=== PATIENT | female | born 1970 | race Caucasian/White ===

== ENCOUNTER → 2017-05-16 | Outpatient (CLI) | payer OTHER ==
[2017-05-16 14:14] LABS: BASO # 0.1 10*3/uL (0.0-0.1); BASO % 1.3 % (0.0-1.0); EOS # 0.1 10*3/uL (0.0-0.4); EOS % 1.5 % (1.0-4.0); HEMATOCRIT 45.8 % (37.0-47.0); HEMOGLOBIN 14.8 g/dl (12.0-16.0); LYMPH # 1.8 10*3/uL (1.3-4.4); MEAN CELL VOLUME 90.9 fl (81.0-99.0); MEAN CORPUSCULAR HGB 29.4 pg (27.0-31.0); MEAN CORPUSCULAR HGB CONC 32.3 g/dl (33.0-37.0); MEAN PLATELET VOLUME 10.3 fl (9.6-12.3); MONO # 0.4 10*3/uL (0.1-1.0); MONO % 7.3 % (3.0-9.0); NEUT # 3.1 10*3/uL (2.3-7.9); NEUT % 56.5 % (47.0-73.0); PLATELET COUNT AUTOMATED 235 10*3/uL (130-400); RED BLOOD COUNT 5.04 10*6/uL (4.10-5.10); RED CELL DISTRI WIDTH 12.7 % (0-14.5); WHITE BLOOD COUNT 5.5 10*3/uL (4.8-10.8)
[2017-05-16 14:35] LABS: ALBUMIN 3.6 gm/dl (3.1-4.5); ALKALINE PHOSPHATASE 66 U/L (45-117); BUN 9 mg/dl (7-24); CHLORIDE 104 mmol/L (98-107); CREATININE 0.87 mg/dL (0.55-1.02); POTASSIUM 4.3 mmol/L (3.5-5.1); SGOT/AST 14 IU/L (3-35); SGPT/ALT 15 U/L (12-78); SODIUM 135 mmol/L (136-145)
== END | disposition home or self-care (01) ==
LOC: US 13:00 → LAB 13:02
DX: N19 Unspecified kidney failure (principal); M19.90 Unspecified osteoarthritis, unspecified site; N39.0 Urinary tract infection, site not specified; Z96.0 Presence of urogenital implants

== ENCOUNTER → 2017-08-19 | Outpatient (CLI) | payer OTHER | END | disposition home or self-care (01) | LOC: US 10:56 | DX: R10.30 Lower abdominal pain, unspecified (principal); R33.9 Retention of urine, unspecified ==

== ENCOUNTER → 2018-12-15 | Outpatient (CLI) | payer OTHER ==
[2018-12-15 07:40] LABS: CREATININE 1.03 mg/dL (0.55-1.02)
[2018-12-15 07:51] LABS: BILIRUBIN NEGATIVE (NEGATIVE); BLOOD NEGATIVE (NEGATIVE); CLARITY CLOUDY (CLEAR); COLOR YELLOW (YELLOW); GLUCOSE NEGATIVE (NEGATIVE); KETONE NEGATIVE (NEGATIVE); LEUKO ESTERASE NEGATIVE (NEGATIVE); NITRITE NEGATIVE (NEGATIVE); PH 5.5 (5.0-9.0); SPECIFIC GRAVITY 1.025 (1.005-1.030)
[2018-12-15 10:34] LABS: BACTERIA 2+; CALCIUM OXALATE CRYSTALS 1+; EPITHELIAL CELLS 15-20; MUCOUS 2+; WBC TNTC wbc/hpf (0-5)
== END | disposition home or self-care (01) ==
LOC: LAB 07:06 → CT 09:00
PROVIDERS: Radiology Diagnostic Radiology; Urology
DX: K57.30 Diverticulosis of large intestine without perforation or abscess without bleeding (principal); K44.9 Diaphragmatic hernia without obstruction or gangrene; N39.0 Urinary tract infection, site not specified; R39.15 Urgency of urination; N28.1 Cyst of kidney, acquired; Z90.49 Acquired absence of other specified parts of digestive tract

== ENCOUNTER → 2019-01-22 | Outpatient (CLI) | payer OTHER | END | disposition home or self-care (01) | LOC: US 12:30 | DX: N28.89 Other specified disorders of kidney and ureter (principal); R10.2 Pelvic and perineal pain; R30.0 Dysuria; Z90.710 Acquired absence of both cervix and uterus ==

== ENCOUNTER → 2019-04-11 | Outpatient (CLI) | payer OTHER ==
[2019-04-11 11:02] LABS: BILIRUBIN NEGATIVE (NEGATIVE); BLOOD NEGATIVE (NEGATIVE); CLARITY CLOUDY (CLEAR); COLOR YELLOW (YELLOW); GLUCOSE NEGATIVE (NEGATIVE); KETONE NEGATIVE (NEGATIVE); LEUKO ESTERASE 2+ (NEGATIVE); NITRITE POSITIVE (NEGATIVE); PH 7.5 (5.0-9.0); UROBILINOGEN 0.2 E.U./dl (0.2-1.0)
[2019-04-11 11:16] LABS: BACTERIA 2+; EPITHELIAL CELLS 21-30; WBC 51-100 wbc/hpf (0-5)
== END | disposition home or self-care (01) ==
LOC: LAB 10:40
PROVIDERS: Nurse Practitioner Family
DX: N39.0 Urinary tract infection, site not specified (principal)

== ENCOUNTER 2020-02-09 07:30 | Inpatient (IN) | payer OTHER ==
[~2020-02-09] VITALS: Ht 160 cm; Wt 61.8 kg
[2020-02-09 07:47] VITALS: BP 115/63; BP 116/89
[2020-02-09 08:13] LABS: BASO % 1.1 % (0.0-1.0); EOS # 0.1 10*3/uL (0.0-0.4); EOS % 3.7 % (1.0-4.0); HEMATOCRIT 42.5 % (37.0-47.0); LYMPH # 1.7 10*3/uL (1.3-4.4); LYMPH % 45.8 % (27.0-41.0); MEAN CELL VOLUME 88.7 fl (81.0-99.0); MEAN CORPUSCULAR HGB 29.6 pg (27.0-31.0); MEAN CORPUSCULAR HGB CONC 33.4 g/dl (33.0-37.0); MEAN PLATELET VOLUME 9.9 fl (9.6-12.3); MONO # 0.3 10*3/uL (0.1-1.0); MONO % 8.7 % (3.0-9.0); NEUT # 1.5 10*3/uL (2.3-7.9); NEUT % 40.4 % (47.0-73.0); PLATELET COUNT AUTOMATED 227 10*3/uL (130-400); RED BLOOD COUNT 4.79 10*6/uL (4.10-5.10); RED CELL DISTRI WIDTH 12.1 % (0-14.5); WHITE BLOOD COUNT 3.8 10*3/uL (4.8-10.8)
[2020-02-09 08:32] LABS: ACT PARTIAL THROMBO TIME 26.5 SECONDS (20.0-32.1); ALBUMIN 3.4 gm/dl (3.1-4.5); ALKALINE PHOSPHATASE 100 U/L (45-117); BUN 12 mg/dl (7-24); CHLORIDE 108 mmol/L (98-107); SGOT/AST 22 IU/L (3-35); SGPT/ALT 32 U/L (12-78); SODIUM 142 mmol/L (136-145); TOTAL PROTEIN 6.6 gm/dL (6.4-8.2)
[2020-02-09 08:35] LABS: TROPONIN I < 0.015 ng/ml (<0.045)
[2020-02-09] MEDS ORDERED: AMITRIPTYLINE25 MG PO (09:07)
[2020-02-09 09:30] VITALS: BP 147/84
--- NOTE | 2020-02-09 09:30 | NUR ---
A 49, admitted to 5E, under the services of ROGER Falk DO with a diagnosis of CHEST PAIN. Chief complaint is JABBING CHEST PAIN WITH ASSOCIATED SOB. Patient arrived via ambulatory from ER. Monitor applied. Initial assessment completed. Vital signs taken and recorded. ROGER FALK DO notified of admission to the unit. Orders received. See assessment for past medical history, medications and allergies. Patient and/or family oriented to unit. [facility] visitation policy reviewed. Clothing/patient valuable form completed. DIANA GOMEZ
--- NOTE | 2020-02-09 09:38 | NUR ---
COMPLAINTS OF CHEST PAIN. REQUESTING MORE MORPHINE. CALLED TO INFORM. SAID HE WOULD PUT ORDERS IN.
--- NOTE | 2020-02-09 09:57 | NUR ---
NITRO GIVEN [facility]PR CHEST PAIN RATED 10/10 WITH ASSOCIATED SOB. 2L NC IN PLACE. NRSE IN ROOM FOR ADMISSION PROCESS.
--- NOTE | 2020-02-09 10:04 | NUR ---
PER PT, NITRO HAS HELPED SOME. HEADACHE IS STARTING TO COME ON- STATES THIS IS MILD AND SHE CAN HANDLE IT WITHOUT MEDICATION. CHEST PAIN NOW RATED 6/10. WITH SOB IMPROVING. 2L NC STILL IN PLACE. CALL LIGHT IN REACH.
--- NOTE | 2020-02-09 10:08 | NUR ---
MED REC UPDATED. STATES SHE ONLY TAKES ELAVIL FOR GI DISTRESS FOR LACTOSE INTOLERANCE.
--- NOTE | 2020-02-09 11:27 | NUR ---
CONSULT CALLED TO .
--- NOTE | 2020-02-09 11:50 | NUR ---
PT SEEN AT THE [facility] 10 YEARS AGO PER THEM AND IT WAS AT AN URGENT CARE, NOT THE HOSPITAL. PT STATES SHE WAS AT THIS HOSPITAL. OK TO NOT OBTAIN MED RECORDS FROM [facility] AT THIS TIME.
[2020-02-09 12:00] VITALS: BP 121/78
--- NOTE | 2020-02-09 13:19 | NUR ---
NEW ORDERS FOR GI COCKTAIL RECD FROM . SEE MAR.
--- NOTE | 2020-02-09 13:53 | NUR ---
CHEST PAIN CURRENTLY "THERE BUT NOT., IT'S TOLERABLE." PER PT AFTER NITRO PASTE APPLIED. GI COCKTAIL GIVEN PER ORDERS. WILL MONITOR. CALL LIGHT IN REACH.
[2020-02-09 15:13] VITALS: BP 124/62
--- NOTE | 2020-02-09 15:13 | NUR ---
CONTINUES TO HAVE MINIMAL CHEST PAIN FOLLOWING NITRO PATCH. NOW COMPLAINS OF NAUSEA FOLLOWING GI COCKTAIL. WILL GIVEN ZOFRAN. SEE MAR.
--- NOTE | 2020-02-09 15:16 | NUR ---
MARTHA GIVEN. WILL MONITOR. CALL LIGHT WITHIN REACH.
[2020-02-09 16:00] VITALS: BP 141/72
--- NOTE | 2020-02-09 16:16 | NUR ---
NAUSEA IS BETTER. PT NOW C/O HEADACHE. CALL LIGHT WITHIN REACH.
--- NOTE | 2020-02-09 16:18 | NUR ---
TYLENOL GIVEN FOR HEADACHE. WILL MONITOR.
--- NOTE | 2020-02-09 18:05 | NUR ---
TYLENOL EFFECTIVE FOR HEADACHE. CALL LIGHT IN REACH. NO VOICED COMPLAINTS AT THIS TIME.
[2020-02-09 20:00] VITALS: BP 115/56
--- NOTE | 2020-02-09 20:05 | NUR ---
PATIENT ASSESSMENT COMPLETED AT THIS TIME WITHOUT INCIDENT, PATIENT DENIES CHEST PAIN OR PRESSURE AT THIS TIME. STATED THAT HER HEADACHE FROM THE NITRO PASTE WAS BETTER AFTER BEING MEDICATIED BY THE DAYLIGHT RN. A&O X3 AT THIS TIME. CALL LIGHT WITHIN REACH, WILL CONTINUE TO MONITOR.
[2020-02-10] VITALS: BP 129/76
--- NOTE | 2020-02-10 01:53 | NUR ---
24 HOUR CHART CHECK COMPLETE
--- NOTE | 2020-02-10 05:33 | NUR ---
PRN ZOFRAN GIVEN AT THIS TIME FOR SEVERE NAUSEA AND DRY HEAVES. PRN TYLENOL GIVEN AT THIS TIME FOR 8/ HEADACHE/ PATIENT A&O X3 AT THIS TIME. NITRO PASTE REMOVED FROM RIGHT UPPER CHEST AND AREA CLEANED AT THIS TIME. WILL REASSESS PATIENT FOR EFFECTIVENESS OF MEDICATIONS
--- NOTE | 2020-02-10 06:30 | NUR ---
PATIENT STATED THAT PAIN AND NAUSEA WAS MUCH BETTER AND RATED HER PAIN AT A 4/10 AT THIS TIME. PATIENT REFUSED NITRO AT THIS TIME DUE TO HER NAUSEA/DRY HEAVES AND HEADACHE. A&O X3, CALL LIGHT WITHIN REACH WILL CONTINUE TO MONITOR.
[2020-02-10 06:38] LABS: BASO # 0.1 10*3/uL (0.0-0.1); BASO % 1.1 % (0.0-1.0); EOS # 0.1 10*3/uL (0.0-0.4); HEMATOCRIT 43.5 % (37.0-47.0); LYMPH # 1.2 10*3/uL (1.3-4.4); LYMPH % 25.4 % (27.0-41.0); MEAN CELL VOLUME 89.7 fl (81.0-99.0); MEAN CORPUSCULAR HGB 29.1 pg (27.0-31.0); MEAN CORPUSCULAR HGB CONC 32.4 g/dl (33.0-37.0); MEAN PLATELET VOLUME 9.8 fl (9.6-12.3); MONO # 0.3 10*3/uL (0.1-1.0); MONO % 6.3 % (3.0-9.0); PLATELET COUNT AUTOMATED 213 10*3/uL (130-400); RED BLOOD COUNT 4.85 10*6/uL (4.10-5.10); RED CELL DISTRI WIDTH 12.1 % (0-14.5); WHITE BLOOD COUNT 4.6 10*3/uL (4.8-10.8)
[2020-02-10 06:55] LABS: ALBUMIN 3.3 gm/dl (3.1-4.5); BUN 18 mg/dl (7-24); CHLORIDE 105 mmol/L (98-107); CHOLESTEROL 229 mg/dL (<200); CREATININE 0.91 mg/dL (0.55-1.02); POTASSIUM 4.1 mmol/L (3.5-5.1); SGOT/AST 18 IU/L (3-35); SGPT/ALT 33 U/L (12-78); SODIUM 141 mmol/L (136-145); TRIGLYCERIDES 126 mg/dl (<150); VLDL CHOLESTEROL 25 mg/dL (6-40)
[2020-02-10 07:01] LABS: ALKALINE PHOSPHATASE 93 U/L (45-117); FREE T4 0.89 ng/dl (0.76-1.46); HDL CHOLESTEROL 61 mg/dl (40-60); LDL CHOLESTEROL 143 mg/dL (9-159); TOTAL PROTEIN 6.4 gm/dL (6.4-8.2)
[2020-02-10 08:00] VITALS: BP 116/68
--- NOTE | 2020-02-10 08:55 | NUR ---
NO COMPLAINTS OF TYLENOL OR HEADACHE. STILL REFUSING NITRO PATCH. CALL LIGHT IN REACH.
--- NOTE | 2020-02-10 11:42 | NUR ---
REFUSED NITRO PASTE AGAIN. STILL VOICES NO COMPLAINTS OF CHEST PAIN AT THIS TIME. RESTING IN BED WHILE WATCHING TV. CALL LIGHT IN REACH.
[2020-02-10 12:00] VITALS: BP 112/61
[2020-02-10 16:00] VITALS: BP 111/74; BP 122/73
--- NOTE | 2020-02-10 17:18 | NUR ---
CONTINUES TO DENY ANY CHEST PAIN OR PRESSURE BUT COMPLAINS OF A HEADACHE AT THIS TIME. TYLENOL GIVEN FOR RELIEF. WILL MONITOR.
[2020-02-10 20:00] VITALS: BP 123/69
--- NOTE | 2020-02-10 23:31 | NUR ---
PATIENT MEDICATED WITH RESTORIL FOR COMPLAINTS OF INSOMNIA. WILL MONITOR FOR EFFECTIVENESS. CALL LIGHT IN REACH.
[2020-02-11] VITALS: BP 131/56
--- NOTE | 2020-02-11 | NUR ---
REFUSES NITROPASTE. SAYS IT GIVES HER A HEADACHE.
--- NOTE | 2020-02-11 02:48 | NUR ---
PATIENT MEDICATED WITH TYLENOL FOR COMPLAINTS OF A HEADACHE. WILL CONTINUE TO MONITOR. CALL LIGHT IN REACH.
--- NOTE | 2020-02-11 05:22 | NUR ---
TYLENOL SOMEWHAT EFFECTIVE. STILL HAS HEADACHE A LITTLE. REFUSES NITROPAST AGAIN AT THIS TIME. WILL CONTINUE TO MONITOR.
[2020-02-11 06:30] LABS: EOS # 0.1 10*3/uL (0.0-0.4); EOS % 3.2 % (1.0-4.0); HEMATOCRIT 40.9 % (37.0-47.0); LYMPH # 1.7 10*3/uL (1.3-4.4); LYMPH % 40.9 % (27.0-41.0); MEAN CELL VOLUME 88.1 fl (81.0-99.0); MEAN CORPUSCULAR HGB 29.5 pg (27.0-31.0); MEAN CORPUSCULAR HGB CONC 33.5 g/dl (33.0-37.0); MEAN PLATELET VOLUME 10.3 fl (9.6-12.3); MONO # 0.3 10*3/uL (0.1-1.0); MONO % 6.8 % (3.0-9.0); NEUT % 48.1 % (47.0-73.0); PLATELET COUNT AUTOMATED 225 10*3/uL (130-400); RED BLOOD COUNT 4.64 10*6/uL (4.10-5.10); RED CELL DISTRI WIDTH 12.1 % (0-14.5); WHITE BLOOD COUNT 4.1 10*3/uL (4.8-10.8)
[2020-02-11 06:57] LABS: BUN 18 mg/dl (7-24); CHLORIDE 108 mmol/L (98-107); CREATININE 0.79 mg/dL (0.55-1.02); POTASSIUM 3.8 mmol/L (3.5-5.1); SODIUM 140 mmol/L (136-145)
[2020-02-11 07:36] VITALS: BP 130/52
--- NOTE | 2020-02-11 10:03 | NUR ---
INFORMED CONSENT SIGNED FOR LEXISCAN STRESS TEST WITH DR. REZA. RESTING EKG NSR, HR 79, BP 110/80. PULSE OX 97% AND LUNGS CLEAR BILATERALLY. COMPLETED ONE MINUTE OF LEXISCAN PROTOCOL RECEIVING LEXISCAN 0.4MG OVER 10 SEC[address]DS[address] NO ARRHYTHMIAS OR ST CHANGES NOTED. PT C/O SHORTNESS OF BREATH AND ODD FEELILNG. LAST RECOVERY HR 109, BP 100/74. WAITING NUCLEAR SCANNING IN STABLE CONDITION.
[2020-02-11 12:00] VITALS: BP 130/71
[2020-02-11] MEDS ORDERED: ASPIRIN ADULT L81 M2 PO (13:49)
[2020-02-11] MEDS ORDERED: METOPROLOL SUCC25 M2 PO (13:49)
[2020-02-11] MEDS ORDERED: ATORVASTATIN CA20 M1 PO (13:49)
--- NOTE | 2020-02-11 14:23 | NUR ---
Discharge instructions reviewed with patient/family. Patient receptive and verbalizes understanding. Follow-up care arranged. Written instructions given to patient/family. DIANA GOMEZ
== END 2020-02-11 14:23 | disposition home or self-care (01) | DRG 198 ==
LOC: ED 07:30 → 5E 08:39 → EDHOLD 08:39 → 5E 09:01
PROVIDERS: Emergency Medicine; Internal Medicine; ADMIT Family Medicine
PROC: 4A02XM4 Measurement of Cardiac Total Activity, External Approach (ICD-10-PCS; principal; 2020-02-11)
PROC: 3E073KZ Introduction of Other Diagnostic Substance into Coronary Artery, Percutaneous Approach (ICD-10-PCS; 2020-02-11)
DX: I20.8 Other forms of angina pectoris (principal); K21.9 Gastro-esophageal reflux disease without esophagitis; R03.0 Elevated blood-pressure reading, without diagnosis of hypertension; D70.9 Neutropenia, unspecified; E87.8 Other disorders of electrolyte and fluid balance, not elsewhere classified; E83.41 Hypermagnesemia; I08.1 Rheumatic disorders of both mitral and tricuspid valves; E44.1 Mild protein-calorie malnutrition; M87.052 Idiopathic aseptic necrosis of left femur; I25.2 Old myocardial infarction; Z82.49 Family history of ischemic heart disease and other diseases of the circulatory system; Z87.891 Personal history of nicotine dependence; Z88.0 Allergy status to penicillin; Z90.710 Acquired absence of both cervix and uterus; Z90.49 Acquired absence of other specified parts of digestive tract; Z90.722 Acquired absence of ovaries, bilateral; Z85.43 Personal history of malignant neoplasm of ovary; Z83.3 Family history of diabetes mellitus; Z68.24 Body mass index [BMI] 24.0-24.9, adult

== ENCOUNTER → 2020-05-31 | Outpatient (CLI) | payer OTHER ==
[~2020-05-31] MED LIST: AMITRIPTYLINE25 MG PO; ASPIRIN ADULT L81 M2 PO; ATORVASTATIN CA20 M1 PO; METOPROLOL SUCC25 M2 PO
[2020-05-31 10:12] LABS: EOS # 0.1 10*3/uL (0.0-0.4); HEMATOCRIT 42.5 % (37.0-47.0); LYMPH # 1.5 10*3/uL (1.3-4.4); LYMPH % 38.5 % (27.0-41.0); MEAN CELL VOLUME 90.8 fl (81.0-99.0); MEAN CORPUSCULAR HGB 28.8 pg (27.0-31.0); MEAN CORPUSCULAR HGB CONC 31.8 g/dl (33.0-37.0); MEAN PLATELET VOLUME 10.5 fl (9.6-12.3); MONO # 0.3 10*3/uL (0.1-1.0); MONO % 7.6 % (3.0-9.0); NEUT % 49.6 % (47.0-73.0); NUCLEATED RED BLOOD CELL 0.5 % (0.0-0.0); PLATELET COUNT AUTOMATED 211 10*3/uL (130-400); RED BLOOD COUNT 4.68 10*6/uL (4.10-5.10); RED CELL DISTRI WIDTH 12.8 % (0-14.5)
[2020-05-31 10:32] LABS: BILIRUBIN NEGATIVE; BLOOD NEGATIVE (NEGATIVE); CLARITY CLEAR (CLEAR); COLOR YELLOW (YELLOW); GLUCOSE NEGATIVE; KETONE NEGATIVE; SPECIFIC GRAVITY 1.015 (1.001-1.030)
[2020-05-31 10:33] LABS: BACTERIA TRACE; LEUKO ESTERASE TRACE (NEGATIVE); NITRITE NEGATIVE (NEGATIVE); PH 7.5 (4.5-8.0); RBC 0-2 rbc/hpf (0-2)
[2020-05-31 10:41] LABS: ALBUMIN 3.5 gm/dl (3.1-4.5); ALKALINE PHOSPHATASE 68 U/L (45-117); BUN 11 mg/dl (7-24); CHLORIDE 108 mmol/L (98-107); CHOLESTEROL 130 mg/dL (<200); CREATININE 0.74 mg/dL (0.55-1.02); HDL CHOLESTEROL 68 mg/dl (40-60); LDL CHOLESTEROL 51 mg/dL (9-159); SGOT/AST 16 IU/L (3-35); SGPT/ALT 22 U/L (12-78); SODIUM 143 mmol/L (136-145); TOTAL PROTEIN 6.3 gm/dL (6.4-8.2); TRIGLYCERIDES 55 mg/dl (<150); VLDL CHOLESTEROL 11 mg/dL (6-40)
[2020-05-31 12:09] LABS: VITAMIN D, 25-HYDROXY 13.1 ng/mL (30-100)
== END | disposition home or self-care (01) ==
LOC: LAB 09:14
PROVIDERS: ATTEND Family Medicine
DX: E78.5 Hyperlipidemia, unspecified (principal); E78.2 Mixed hyperlipidemia; I10 Essential (primary) hypertension; R73.03 Prediabetes; E03.9 Hypothyroidism, unspecified; M81.0 Age-related osteoporosis without current pathological fracture; D51.9 Vitamin B12 deficiency anemia, unspecified

== ENCOUNTER 2020-09-06 08:39 | Emergency (ER) | payer OTHER ==
[~2020-09-06] VITALS: Ht 160 cm; Wt 58.1 kg
== END 2020-09-06 10:06 | disposition home or self-care (01) ==
LOC: ED 08:39
DX: S20.212A Contusion of left front wall of thorax, initial encounter (principal); S60.212A Contusion of left wrist, initial encounter; S60.222A Contusion of left hand, initial encounter; K21.9 Gastro-esophageal reflux disease without esophagitis; I25.2 Old myocardial infarction; Z88.0 Allergy status to penicillin; Z88.8 Allergy status to other drugs, medicaments and biological substances; V49.9XXA Car occupant (driver) (passenger) injured in unspecified traffic accident, initial encounter; Y93.89 Activity, other specified; Y92.89 Other specified places as the place of occurrence of the external cause; Y99.8 Other external cause status

== ENCOUNTER → 2020-10-13 | Outpatient (CLI) | payer OTHER | END | disposition home or self-care (01) | LOC: COVID19 16:16 | PROVIDERS: ATTEND Podiatrist | DX: Z01.812 Encounter for preprocedural laboratory examination (principal); Z20.822 Contact with and (suspected) exposure to COVID-19 ==

== ENCOUNTER 2021-11-01 11:20 | Emergency (ER) | payer OTHER ==
[~2021-11-01] VITALS: Ht 160 cm; Wt 54.9 kg
[~2021-11-01 11:20] MED LIST changes: +MECLIZINE HCL25 M2 PO; +TRAZODONE50 MG PO
== END 2021-11-01 14:27 | disposition home or self-care (01) ==
LOC: ED 11:20
DX: S93.401A Sprain of unspecified ligament of right ankle, initial encounter (principal); Z88.0 Allergy status to penicillin; Z88.8 Allergy status to other drugs, medicaments and biological substances; Z90.49 Acquired absence of other specified parts of digestive tract; Z98.890 Other specified postprocedural states; Z90.710 Acquired absence of both cervix and uterus; Z87.891 Personal history of nicotine dependence; W01.0XXA Fall on same level from slipping, tripping and stumbling without subsequent striking against object, initial encounter; Y93.89 Activity, other specified; Y92.89 Other specified places as the place of occurrence of the external cause; Y99.8 Other external cause status

== ENCOUNTER 2022-05-12 13:01 | Emergency (ER) | payer OTHER ==
[~2022-05-12] VITALS: Wt 50.8 kg
== END 2022-05-12 16:06 | disposition home or self-care (01) ==
LOC: ED 13:01
DX: U07.1 COVID-19 (principal); Z88.8 Allergy status to other drugs, medicaments and biological substances; Z88.0 Allergy status to penicillin; Z79.899 Other long term (current) drug therapy; Z98.890 Other specified postprocedural states; Z90.49 Acquired absence of other specified parts of digestive tract; Z90.710 Acquired absence of both cervix and uterus; Z87.891 Personal history of nicotine dependence

== ENCOUNTER 2024-01-02 09:08 | Emergency (ER) | payer OTHER ==
[~2024-01-02] VITALS: Ht 160 cm; Wt 48.5 kg
[2024-01-02] MEDS ORDERED: SODIUM CHLORIDE 0.9% 1,000 ML IV ONE (09:30)
[2024-01-02] MEDS ORDERED: Ondansetron Hydrochloride 4 MG/2 ML VIAL IV ONE (09:30)
[2024-01-02 09:46] LABS: BASO % 0.3 % (0.0-1.0); EOS # 0.1 10*3/uL (0.0-0.4); HEMATOCRIT 42.5 % (37.0-47.0); LYMPH # 0.7 10*3/uL (1.3-4.4); LYMPH % 19.7 % (27.0-41.0); MEAN CELL VOLUME 86.9 fl (81.0-99.0); MEAN CORPUSCULAR HGB CONC 33.4 g/dl (33.0-37.0); MEAN PLATELET VOLUME 10.3 fl (9.6-12.3); MONO # 0.3 10*3/uL (0.1-1.0); MONO % 8.9 % (3.0-9.0); NEUT # 2.5 10*3/uL (2.3-7.9); NEUT % 67.8 % (47.0-73.0); PLATELET COUNT AUTOMATED 139 10*3/uL (130-400); RED BLOOD COUNT 4.89 10*6/uL (4.10-5.10); RED CELL DISTRI WIDTH 12.2 % (0-14.5); WHITE BLOOD COUNT 3.6 10*3/uL (4.8-10.8)
[2024-01-02 10:01] LABS: BUN 14 mg/dl (9-23); CHLORIDE 101 mmol/L (98-107); LIPASE 34 U/L (12-53)
[2024-01-02] MEDS ORDERED: POTASSIUM CHLORIDE 20 MEQ TAB PO ONE (10:35)
[2024-01-02] MEDS ORDERED: ONDANSETRON4 MG SL (11:33)
== END 2024-01-02 11:38 | disposition home or self-care (01) ==
LOC: ED 09:08
PROVIDERS: Physician Assistant Medical
DX: B34.9 Viral infection, unspecified (principal); Z20.822 Contact with and (suspected) exposure to COVID-19; R11.2 Nausea with vomiting, unspecified; H92.03 Otalgia, bilateral; R42 Dizziness and giddiness; M19.90 Unspecified osteoarthritis, unspecified site; Z88.8 Allergy status to other drugs, medicaments and biological substances; Z88.0 Allergy status to penicillin; Z79.899 Other long term (current) drug therapy; Z98.890 Other specified postprocedural states; Z90.49 Acquired absence of other specified parts of digestive tract; Z90.711 Acquired absence of uterus with remaining cervical stump; Z87.891 Personal history of nicotine dependence